=== PATIENT | female | born 1965 | race Caucasian/White ===

== ENCOUNTER 2024-08-23 07:08 | Emergency (ER) | payer OTHER, SELFPAY ==
[2024-08-23 07:13] VITALS: BP 138/83; PULSE 81; TEMP 36.7; O2SAT 98; BMI 27.4
--- NOTE | 2024-08-23 07:19 | PC.NURSE ---
pt bit on wednesday night by what she thought was a bee possibly. has been using benadryl at home and not helping. redness and swelling increasing to L ring finger
--- NOTE | 2024-08-23 07:25 | ED.GENADUL1 ---
HPI HPI - General Adult General Chief complaint: Wound/Laceration Stated complaint: insect bite - finger Time Seen by Provider: 08/23/24 07:13 Source: patient Mode of arrival: walk-in Limitations: no limitations History of Present Illness HPI narrative: 59-year-old female presents to the emergency department for a chief complaint of bee sting to her left ring finger. She states that this happened 2 days ago and its become red and swollen and she is worried. No other injury was sustained. Related Data Home Medications ?Medication ?Instructions ?Recorded ?Confirmed citalopram 20 mg tablet 20 mg PO DAILY 08/23/24 08/23/24 metformin 500 mg tablet 500 mg PO DAILY 08/23/24 08/23/24 omeprazole 20 mg capsule,delayed 20 mg PO BID 08/23/24 08/23/24 release phentermine 37.5 mg capsule 37.5 mg PO DAILY 08/23/24 08/23/24 rosuvastatin 5 mg tablet (Crestor) 5 mg PO DAILY 08/23/24 08/23/24 Previous Rx's ?Medication ?Instructions ?Recorded prednisone 10 mg tablet See Rx Instructions .Route 08/23/24 .COMPLEX #30 tabs sulfamethoxazole 800 1 tab PO BID 10 days #20 tabs 08/23/24 mg-trimethoprim 160 mg tablet (Bactrim DS) Allergies Allergy/AdvReac Type Severity Reaction Status Date / Time cephalexin (From Keflex) Allergy Mild Hives Verified 08/23/24 07:12 erythromycin base AdvReac Mild Abdominal Verified 08/23/24 07:12 Pain Review of Systems ROS Narrative A ten point review of systems is negative except as noted above. PFSH PFSH Social History Little interest or pleasure in doing things: not at all Feeling down, depressed, or hopeless: not at all Exam Narrative Exam Narrative: Nurses note and vital signs reviewed and patient is not hypoxic. General: The patient appears well and in no apparent distress. Patient is resting comfortably on cart. Skin: Warm, dry, no pallor noted. There is no rash noted. Head: Normocephalic, atraumatic Eye: Normal conjunctiva, no drainage Ears, Nose, Mouth, and Throat: oral mucosa is moist. Nares patent. Cardiovascular: Regular Rate and Rhythm Respiratory: Patient is in no distress, no accessory muscle use Back: non-tender GI: Soft and nontender Musculoskeletal: Left hand is examined. The ring finger is swollen particular in the proximal portion where there is erythema and the erythema extends up on the dorsum of the hand. No lymphangitis or open area or active drainage. Neurological: A&O normal speech Psychiatric: Cooperative Constitutional Vital Signs, click to edit/add: Last Vital Signs Temp 98.1 F 08/23/24 07:13 Pulse 81 08/23/24 07:13 Resp 18 08/23/24 07:13 BP 138/83 08/23/24 07:13 Pulse Ox 98 08/23/24 07:13 O2 Del Method Room Air 08/23/24 07:13 Course Vital Signs Vital signs: Vital Signs Temperature 98.1 F 08/23/24 07:13 Pulse Rate 81 08/23/24 07:13 Respiratory Rate 18 08/23/24 07:13 Blood Pressure 138/83 08/23/24 07:13 Pulse Oximetry 98 08/23/24 07:13 Oxygen Delivery Method Room Air 08/23/24 07:13 Temperature 98.1 F 08/23/24 07:13 Pulse Rate 81 08/23/24 07:13 Respiratory Rate 18 08/23/24 07:13 Blood Pressure 138/83 08/23/24 07:13 Pulse Oximetry 98 08/23/24 07:13 Oxygen Delivery Method Room Air 08/23/24 07:13 Medical Decision Making MDM Narrative Medical decision making narrative: She is prescribed prednisone and Bactrim. She will monitor her blood sugars closely, she wears a blood glucose monitoring system. Treatment diagnosis and follow-up were discussed with the patient. Differential Diagnosis Differential Diagnosis: Localized reaction to bee sting, cellulitis Discharge Plan Discharge Chief Complaint: Wound/Laceration Clinical Impression: Bee sting Patient Disposition: Home, Self-Care Time of Disposition Decision: 07:21 Condition: Good Mode of Transportation: Private Vehicle Prescriptions / Home Meds: New prednisone 10 mg tablet See Rx Instructions .ROUTE .COMPLEX Qty: 30 0RF Rx Instructions: 4 by mouth daily for three days then 3 by mouth daily for three days then 2 by mouth daily for three days then 1 by mouth daily for three days sulfamethoxazole-trimethoprim [Bactrim DS] 800-160 mg tablet 1 tab PO BID 10 Days Qty: 20 0RF No Action metformin 500 mg tablet 500 mg PO DAILY citalopram 20 mg tablet 20 mg PO DAILY rosuvastatin [Crestor] 5 mg tablet 5 mg PO DAILY omeprazole 20 mg capsule,delayed release(DR/EC) 20 mg PO BID phentermine 37.5 mg capsule 37.5 mg PO DAILY Rx Instructions: must administer 30 minutes before or 1-2 hours after breakfast Print Language: Taiwanese Instructions: Insect Bite or Sting (ED)
== END 2024-08-23 07:33 | disposition home or self-care (01) ==
LOC: ER 07:28
PROVIDERS: Emergency Provider Emergency Medicine; PCP Family Medicine
DX: T63.441A Toxic effect of venom of bees, accidental (unintentional), initial encounter (principal); M79.89 Other specified soft tissue disorders
CPT/HCPCS: 99283